=== PATIENT | male | born 1945 | race Caucasian/White ===

== ENCOUNTER 2019-05-16 12:22 | Emergency (ER) | payer MEDICAID ==
[~2019-05-16] VITALS: Ht 177.8 cm; Wt 80.4 kg
[2019-05-16 12:45] VITALS: Ht 177.8 cm; Wt 80.4 kg
[2019-05-16 14:22] LABS: BASOPHIL % 0.2 % (0-2); PLATELET COUNT 232 x10^3mcL (130-400); RED CELL DISTRIBUTION WIDTH 13.6 % (11.5-14.5)
[2019-05-16 14:46] LABS: CALCIUM 7.9 mg/dL (8.5-10.1); CARBON DIOXIDE 28.5 mmol/L (21-32); CHLORIDE SERUM 104 mmol/L (98-107); GLUCOSE SERUM 76 mg/dL (74-106); POTASSIUM SERUM 3.9 mmol/L (3.5-5.1); SODIUM SERUM 141 mmol/L (136-145)
[2019-05-16 14:51] LABS: ALKALINE PHOSPHATASE 82 U/L (46-116); ALT/SGPT 25 U/L (16-63); AST/SGOT 19 U/L (15-37); BILIRUBIN TOTAL 0.4 mg/dL (0.20-1.00); C REACTIVE PROTEIN 0.7 mg/dL (<=0.9); TOTAL PROTEIN, SERUM 7.3 g/dL (6.4-8.2)
[2019-05-16 14:55] LABS: ALBUMIN 3.2 g/dL (3.4-5.0)
[2019-05-16 17:59] VITALS: BP 131/87
== END 2019-05-16 18:31 | disposition home or self-care (01) ==
LOC: ED 12:22
PROVIDERS: Student in an Organized Health Care Education/Training Program
DX: J20.9 Acute bronchitis, unspecified (principal); J95.02 Infection of tracheostomy stoma; I10 Essential (primary) hypertension; Z90.411 Acquired partial absence of pancreas; Z98.890 Other specified postprocedural states
CPT/HCPCS: 36415; 83880